=== PATIENT | female | born 1970 | race Asian ===

== ENCOUNTER 2023-08-09 09:26 | Emergency (ER) | payer BC ==
[~2023-08-09] VITALS: Ht 167.6 cm; Wt 58.8 kg
[2023-08-09 10:05] VITALS: BP 103/45; PULSE 74; RESP 17; TEMP 98.9; O2SAT 95
[2023-08-09] MEDS ORDERED: PROM1SOL4 PO (10:50)
[2023-08-09] MEDS ORDERED: BENZ100C97 PO (10:50)
[2023-08-09] MEDS ORDERED: AZIT-185 PO (10:50)
== END 2023-08-09 10:51 | disposition home or self-care (01) ==
LOC: ER 09:26
DX: J40 Bronchitis, not specified as acute or chronic (principal)